=== PATIENT | female | born 1960 | race Caucasian/White ===

== ENCOUNTER 2021-11-19 10:00 | Day surgery (SDC) | payer OTHER ==
[~2021-11-19] VITALS: Ht 177.8 cm; Wt 143.0 kg
[2021-11-19] MEDS ORDERED: SPIR25 (10:57)
[2021-11-19] MEDS ORDERED: TRAZ100 (10:58)
[2021-11-19] MEDS ORDERED: ATOR40TA (10:58)
[2021-11-19] MEDS ORDERED: BUME1 (10:58)
[2021-11-19] MEDS ORDERED: METO25ER (10:59)
[2021-11-19] MEDS ORDERED: POTCHL20ER (11:01)
[2021-11-19] MEDS ORDERED: OMEP20ER (11:01)
[2021-11-19] MEDS ORDERED: PREG75 (11:01)
== END 2021-11-19 12:23 | disposition home or self-care (01) ==
LOC: ORSCSDS 10:00
DX: K21.00 Gastro-esophageal reflux disease with esophagitis, without bleeding (principal); Z98.84 Bariatric surgery status; I10 Essential (primary) hypertension; E66.01 Morbid (severe) obesity due to excess calories; Z68.42 Body mass index [BMI] 45.0-49.9, adult; Z79.899 Other long term (current) drug therapy
CPT/HCPCS: 88305; 88312; J2704; J7120

== ENCOUNTER → 2022-07-04 | Outpatient (CLI) | payer OTHER ==
[~2022-07-04] MED LIST: ATOR40TA; BUME1; METO25ER; OMEP20ER; POTCHL20ER; PREG75; SPIR25; TRAZ100
[2022-07-08 15:10] LABS: HPV 16 Negative (Negative); HPV 18 Negative (Negative); HPV OTHER HR TYPES Negative (Negative)
== END | disposition home or self-care (01) ==
LOC: LAB SHORT 15:42
PROVIDERS: Family Medicine
DX: Z12.4 Encounter for screening for malignant neoplasm of cervix (principal)
CPT/HCPCS: 87624; G0145